=== PATIENT | male | born 2000 | race Caucasian/White ===

== ENCOUNTER 2021-11-11 16:31 | Inpatient (IN) | payer BC ==
[~2021-11-11] VITALS: Ht 195.6 cm; Wt 115.3 kg
[2021-11-11 18:01] LABS: HEMATOCRIT 44.5 % (36.0-47.0); HEMOGLOBIN 15.3 g/dl (12.5-16.1); MEAN CELL VOLUME 93 fl (80.0-95.0); MEAN CORPUSCULAR HEMOGLOBIN 32 pg (26-32); MEAN CORPUSCULAR HGB CONC 34 g/dl (33.0-37.0); MEAN PLATELET VOLUME 10.6 fl (7.4-10.4); PLATELET COUNT 110 K/mm3 (130-400); RED BLOOD COUNT 4.78 M/mm3 (4.20-5.60); REDCELL DISTRIBUTION WIDTH-CV 12.9 % (11.5-14.5)
[2021-11-11 18:12] LABS: ALBUMIN 4.1 gm/dL (3.5-5.0); BILIRUBIN,TOTAL 9.1 mg/dL (0.2-1.2); C-REACTIVE PROTEIN 6.62 mg/dL (0.00-0.50); CALCIUM 9.6 mg/dL (8.4-10.2); CREATININE, serum 1.15 mg/dL (0.72-1.25); POTASSIUM 4.5 mmol/L (3.5-4.5); TOTAL PROTEIN 7.5 gm/dL (6.2-8.1)
[2021-11-11 19:13] LABS: BAND 23 % (0-10); LYMPHOCYTE 30 % (20.0-51.0); NEUTROPHILS 44 % (42.0-75.2); PLATELET ESTIMATE NORMAL (NORMAL)
[2021-11-11 20:17] LABS: MONOSCREEN POSITIVE
[2021-11-11 21:00] LABS: INR 1.4 (0.8-3.0); PROTHROMBIN TIME 15.1 SECONDS (9.7-12.8)
[2021-11-11 21:02] LABS: PARTIAL THROMBOPLASTIN TIME 33.9 SECONDS (26.0-37.0)
[2021-11-11 21:56] VITALS: BP 130/70; PULSE 90; TEMP 98.7
[2021-11-12 01:54] LABS: COLLECTION METHOD CLEAN CATCH
[2021-11-12 02:02] LABS: MUCOUS Present (NOT PRESENT); PH 5 (5-8); SQUAMOUS EPITHELIAL 0-2 /hpf (0-10); URINE APPEARANCE Clear (CLEAR/HAZY); URINE BACTERIA None Seen /hpf (NONE SEEN); URINE BILIRUBIN Positive (NEGATIVE); URINE BLOOD 1+ (NEGATIVE); URINE COLOR Amber (YELLOW); URINE GLUCOSE Negative (NEGATIVE); URINE KETONE Trace (NEGATIVE); URINE LEUKOCYTE ESTERASE Negative (NEGATIVE); URINE NITRATE Negative (NEGATIVE); URINE PROTEIN(semi-quant) Negative (NEGATIVE); URINE UROBILINOGEN >=4.0 (NEGATIVE)
[2021-11-12 04:20] VITALS: BP 134/59; PULSE 97; TEMP 101.1
--- NOTE | 2021-11-12 05:57 | NUR ---
Patient continues on IV fluids per orders. Received PRN Dilaudid as requested for abdominal pain. Patient had temp and given Motrin. Voices no questions, needs, or concerns at this time. In bed with call light within reach.
[2021-11-12 07:09] LABS: HEMATOCRIT 37.8 % (36.0-47.0); MEAN CELL VOLUME 93 fl (80.0-95.0); MEAN CORPUSCULAR HEMOGLOBIN 32 pg (26-32); MEAN CORPUSCULAR HGB CONC 34 g/dl (33.0-37.0); MEAN PLATELET VOLUME 11.4 fl (7.4-10.4); PLATELET COUNT 100 K/mm3 (130-400); RED BLOOD COUNT 4.08 M/mm3 (4.20-5.60)
[2021-11-12 07:23] LABS: ALBUMIN 3.4 gm/dL (3.5-5.0); BILIRUBIN,TOTAL 7.9 mg/dL (0.2-1.2); CALCIUM 8.2 mg/dL (8.4-10.2); CREATININE, serum 1.12 mg/dL (0.72-1.25); POTASSIUM 3.9 mmol/L (3.5-4.5); TOTAL PROTEIN 6.2 gm/dL (6.2-8.1)
--- NOTE | 2021-11-12 08:01 | NUR ---
THIS NURSE RECEIVED HGB UPDATE FROM LAB HGB HAS DECLINED. PT ON FLUIDS AND CONSISTENT WITH HGB DECLINE. NOT A CRITICAL VALUE.
[2021-11-12 08:38] VITALS: BP 130/65; PULSE 70; TEMP 98.1
[2021-11-12 09:02] LABS: BAND 25 % (0-10); NEUTROPHILS 25 % (42.0-75.2)
[2021-11-12 09:03] LABS: LYMPHOCYTE 44 % (20.0-51.0); PLATELET ESTIMATE DECREASED (NORMAL)
--- NOTE | 2021-11-12 09:37 | NUR ---
n/s changed to 50cc/hr. this nurse made adjustment. Pt instructed to inform nurse of any continues n.v. and status of tolerating diet.
--- NOTE | 2021-11-12 09:55 | NUR ---
Initial visit; Patient thanked Traffic Court Magistrate for offering God's blessings and keeping him in Traffic Court Magistrate's prayers.
--- NOTE | 2021-11-12 11:02 | NUR ---
MELANIA met with the patient and his father, Johnny (ph#[phone]), to discuss discharge plan. The patient was sleeping. Johnny reports that the patient lives in [place] with roommates. The patient was staying with him at the beginning of the week, since the patient did not feel good. Johnny reports that the patient is independent with ADLs and does not have any DME. 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 The patient does not have a PCP in [place]. Johnny reports that he is not sure if the patient will want to get established with one here or not. His father was interested in getting a list of [place] Providers. MELANIA provided Johnny with that list. The patient's mothers' name is Saritha Mejia. Johnny reports that the plan is for the patient to return back home with him upon discharge. No additional needs at this time. *Discharge plan: home with father*
[2021-11-12 11:39] VITALS: BP 138/51; PULSE 77; TEMP 97.7
--- NOTE | 2021-11-12 13:13 | NUR ---
PT TOLERATING DIET FREE OF N/V/D THUS FAR.
--- NOTE | 2021-11-12 14:59 | NUR ---
PT C/O PAIN TO LUQ. MEDICATION ADMINISTERED ORDERED. VSS.
[2021-11-12 16:59] VITALS: BP 125/65; PULSE 88; TEMP 99.5
--- NOTE | 2021-11-12 17:47 | NUR ---
PT CONTINUES TO FEEL NAUSEAS AND DIZZY BUT NO EMESIS. PT NOT TOLERATING DIET WITHOUT ISSUE, CONTINUES TO FEEL NAUSEA AFTER EATING. CONTINUES TO C/O PAIN TO LUQ, MEDICATION ADMINISTERED ORDERED WITH ALLEVIATION. N.S INFUSING AT 50CC/HR TO LFA IV. PT URINATING FINE WITHOUT ISSUE. PT BROKE OUT WITH LOW GRADE FEVER, COOL TOWEL APPLIED. ALL NEEDS MET THIS SHIFT.
[2021-11-12 19:30] VITALS: BP 142/71; PULSE 86; TEMP 99.2
[2021-11-13] VITALS (7 sets, daily range): BP systolic 128–146; BP diastolic 60–77; PULSE 68–115; TEMP 98.2–101
--- NOTE | 2021-11-13 06:30 | NUR ---
ASSESSMENT COMPLETE FOR THIS SHIFT. PT RESTING IN BED NAPPING. PT COMPLAINED OF A HEADACHE/GENERALIZED PAIN HE RATED AN 8 TO 9. PT GIVEN DILAUDID A COUPLE OF TIMES TONIGHT. PT DENIED PALPITATIONS, SOB, N,V,D OR DIZZINESS. PT SPIKED A TEMP OF 101. PT GIVEN MOTRIN FOR FEVER. FEVER REDUCED. PT EXPRESSED NO OTHER NEEDS AT THIS TIME. CALL LIGHT WITHIN REACH.
[2021-11-13 07:53] LABS: PATHOLOGY DIFF REVIEW OK
[2021-11-13 08:36] LABS: HEMATOCRIT 39.2 % (36.0-47.0); HEMOGLOBIN 13.6 g/dl (12.5-16.1); MEAN CELL VOLUME 92 fl (80.0-95.0); MEAN CORPUSCULAR HEMOGLOBIN 32 pg (26-32); MEAN CORPUSCULAR HGB CONC 35 g/dl (33.0-37.0); MEAN PLATELET VOLUME 10.7 fl (7.4-10.4); PLATELET COUNT 98 K/mm3 (130-400); RED BLOOD COUNT 4.25 M/mm3 (4.20-5.60)
[2021-11-13 08:53] LABS: ALBUMIN 3.3 gm/dL (3.5-5.0); BILIRUBIN,TOTAL 10.8 mg/dL (0.2-1.2); CALCIUM 8.6 mg/dL (8.4-10.2); CREATININE, serum 1.03 mg/dL (0.72-1.25); POTASSIUM 3.9 mmol/L (3.5-4.5); TOTAL PROTEIN 6.4 gm/dL (6.2-8.1)
[2021-11-13 10:15] LABS: BAND 2 % (0-10); LYMPHOCYTE 59 % (20.0-51.0); NEUTROPHILS 33 % (42.0-75.2); PLATELET ESTIMATE DECREASED (NORMAL)
--- NOTE | 2021-11-13 18:11 | NUR ---
PT TOLERATING DIET FREE OF N,V,D, PT STATES HE FEELS MUCH BETTER THIS DAY. PT HAS RESTED SUBSTANTIALLY. PT CONTINUES TO APPEAR MILDLY JAUNDICED. ALL NEEDS MET THIS SHIFT.CALL NGUYEN CISSE.
--- NOTE | 2021-11-13 22:37 | NUR ---
ASSESSMENT COMPLETE FOR THIS SHIFT. PT RESTING IN BED WATCHING TV. PT STATED HE FELT MUCH BETTER TONIGHT. PT DENIED PAIN, PALPITATIONS, N,V,D, SOB OR DIZZINESS. PT HAS BEEN AFEBRILE SO FAR TONIGHT. WILL CONTINUE TO MONITOR. PT EXPRESSED NO OTHER NEEDS AT THIS TIME. CALL LIGHT WITHIN REACH.
[2021-11-14 00:50] VITALS: BP 165/94; PULSE 83; TEMP 100.4
[2021-11-14 03:31] VITALS: BP 141/59; PULSE 81; TEMP 98.5
[2021-11-14 07:18] LABS: HEMATOCRIT 38.5 % (36.0-47.0); HEMOGLOBIN 13.2 g/dl (12.5-16.1); MEAN CELL VOLUME 93 fl (80.0-95.0); MEAN CORPUSCULAR HEMOGLOBIN 32 pg (26-32); MEAN CORPUSCULAR HGB CONC 34 g/dl (33.0-37.0); MEAN PLATELET VOLUME 11.6 fl (7.4-10.4); PLATELET COUNT 107 K/mm3 (130-400); RED BLOOD COUNT 4.15 M/mm3 (4.20-5.60); REDCELL DISTRIBUTION WIDTH-CV 13.2 % (11.5-14.5)
[2021-11-14 07:24] VITALS: BP 126/60; PULSE 92; TEMP 98.5
[2021-11-14 07:38] LABS: ALBUMIN 3.3 gm/dL (3.5-5.0); BILIRUBIN,TOTAL 10.1 mg/dL (0.2-1.2); CALCIUM 8.6 mg/dL (8.4-10.2); CREATININE, serum 0.97 mg/dL (0.72-1.25); POTASSIUM 3.9 mmol/L (3.5-4.5); TOTAL PROTEIN 6.4 gm/dL (6.2-8.1)
[2021-11-14 08:23] LABS: BAND 1 % (0-10); EOSINOPHIL 1 % (0-4); LYMPHOCYTE 57 % (20.0-51.0); METAMYELOCYTE 2 % (0-0); NEUTROPHILS 25 % (42.0-75.2); PLATELET ESTIMATE DECREASED (NORMAL)
--- NOTE | 2021-11-14 12:09 | NUR ---
Patient laying in bed upon entering the room. Patient reports one episode of emesis. Throat is still very sore; Patient given PRN dilaudid and zofran.
[2021-11-14 15:57] VITALS: BP 126/57; PULSE 86; TEMP 98.3
--- NOTE | 2021-11-14 18:34 | NUR ---
This RN entered the room and found the patient laying in a position. Patient stated he was in a lot of pain, but did not call as he did not want to "bother anyone". This RN educated the patient on how imperative it was for the patient to call when he was experiencing pain and that he would not be bothering anyone at all. PRN dose of dilaudid was given.
[2021-11-14 20:06] VITALS: BP 118/70; PULSE 101; TEMP 98.8
[2021-11-15 00:04] VITALS: BP 133/71; PULSE 80; TEMP 98.2
[2021-11-15 03:58] VITALS: BP 111/44; PULSE 71; TEMP 98.1
--- NOTE | 2021-11-15 04:17 | NUR ---
DILAUDID FOR PAIN. ZOFRAN FOR NAUSEA x1. INDEPENDENT IN ROOM. PT STATES HE HAS BEEN VERY DIAPHORETIC.
[2021-11-15 06:48] LABS: HEMATOCRIT 37.3 % (36.0-47.0); HEMOGLOBIN 12.7 g/dl (12.5-16.1); MEAN CELL VOLUME 94 fl (80.0-95.0); MEAN CORPUSCULAR HEMOGLOBIN 32 pg (26-32); MEAN CORPUSCULAR HGB CONC 34 g/dl (33.0-37.0); PLATELET COUNT 126 K/mm3 (130-400); RED BLOOD COUNT 3.97 M/mm3 (4.20-5.60); REDCELL DISTRIBUTION WIDTH-CV 13.6 % (11.5-14.5)
[2021-11-15 07:07] LABS: ALBUMIN 3.1 gm/dL (3.5-5.0); BILIRUBIN,TOTAL 9.3 mg/dL (0.2-1.2); CALCIUM 8.4 mg/dL (8.4-10.2); CREATININE, serum 0.92 mg/dL (0.72-1.25); POTASSIUM 4.1 mmol/L (3.5-4.5); TOTAL PROTEIN 6.4 gm/dL (6.2-8.1)
[2021-11-15 07:51] VITALS: BP 140/71; PULSE 88; TEMP 98.7
[2021-11-15 08:12] LABS: BAND 14 % (0-10); EOSINOPHIL 1 % (0-4); LYMPHOCYTE 64 % (20.0-51.0); METAMYELOCYTE 1 % (0-0); NEUTROPHILS 15 % (42.0-75.2)
[2021-11-15 08:16] LABS: PLATELET ESTIMATE NORMAL (NORMAL)
[2021-11-15] MEDS ORDERED: PROTONIX 40MG T40 MG PO (09:23)
[2021-11-15] MEDS ORDERED: ZOFRAN ODT4 MG PO (09:23)
--- NOTE | 2021-11-15 10:28 | NUR ---
SW met with patient to follow up on PCP. Patient hasn't looked over form provided. Encouraged him to look over it and verbally listed PCP offices in town. At time of dc, RN comes to me stating the patient had called [facility] and set up an appointment on his own for this Monday, but that the patient couldn't remember who with.
[2021-11-15 11:56] LABS: PATHOLOGY DIFF REVIEW OK +
--- NOTE | 2021-11-15 12:33 | NUR ---
Patient discharged home. Patient set up an appointment with a new PCP before he left. This RN set up an appointment with GI for the patient. IV was discontinued by this RN. Patient did not have any complaints at the time of discharge. All discharged education discussed, questions answered.
[2021-11-16 08:54] LABS: EBV NUCLEAR ANTIGEN IGG Negative (())
[2021-11-16 08:56] LABS: EBV EARLY ANTIGEN IGG Positive (())
[2021-11-16 08:57] LABS: EBV IGM AB Positive (())
== END 2021-11-15 11:30 | disposition home or self-care (01) | DRG 443 ==
LOC: COL.ER 16:31 → MEDICAL 20:23
PROVIDERS: Internal Medicine Infectious Disease; Nurse Practitioner; Nurse Practitioner Family; Physician Assistant; ADMIT Internal Medicine
DX: B17.8 Other specified acute viral hepatitis (principal); I10 Essential (primary) hypertension; B27.90 Infectious mononucleosis, unspecified without complication; D69.6 Thrombocytopenia, unspecified; E86.0 Dehydration; Z20.822 Contact with and (suspected) exposure to COVID-19
CPT/HCPCS: 99222-AI; 99233-AI; 99239; C9113; J1170; J2405; J7030; Q9967